=== PATIENT | female | born 1935 | race Caucasian/White ===

== ENCOUNTER 2016-10-21 17:01 | Observation (INO) | payer MEDICARE ==
--- NOTE | ~2016-10-21 | DS ---
Discharge Summary [facility] [address] [facility] [place]. [address] NAME: SABI HAIR : 33 STATUS : DIS Mary PAT#: [id number] AGE: 81 ADM/REG DATE : 10/21/16 MR#: [id number] REPORT SERV DATE: 10/24/16 DICTATED BY: ROSELIA MAURO DATE: 10/23/16 REPORT STATUS : Draft TRANSCRIBED BY: MODL DATE: 10/23/16 ADMISSION DATE: 10/21/2016 DISCHARGE DATE: 10/23/2016 HISTORY OF PRESENT ILLNESS: The patient is an 81-year-old female with a history of hypertension, paroxysmal atrial fibrillation, and CLL, who was admitted to the hospital for observation due to concern for hypoxia. For further details, please refer to H and P dictated by me on 10/22/2016. HOSPITAL COURSE: The patient was admitted as a direct admit from her primary care physician. At the time of presentation, there was no lab data available. Information gotten from primary care physician's office stated that her chest x-ray obtained in the office was clear. On presentation to the floor, the patient's O2 saturation measured 100%. The patient was complaining of generalized weakness. Labs were subsequently ordered, which resulted with a potassium of 2.7 and other electrolyte abnormalities. Electrolyte abnormalities were corrected per electrolyte repletion protocol. The patient was also noted to have LARRY with elevated creatinine. She was started on IV fluids for that and her home medications were also restarted to manage her chronic medical problems. During the hospital course, the patient was placed on IV fluids and all electrolytes were repleted. Status post correction of her potassium, the patient has felt significantly better stating that she is more energetic, able to walk around, does not have any complaint at this time. The patient feels very well and eager to go home. Given resolution of presenting symptoms and given correction of all her electrolytes, the patient will be discharged today. Plan has been discussed with the patient, who voices understanding and is agreeable with this plan. DISCHARGE EXAM: VITAL SIGNS: Blood pressure 118/58, pulse of 66, respirations 16, O2 saturation 98% on room air, temperature 97.9. GENERAL: The patient lying in bed, in no acute distress. Appears stated age. Speaking in full sentences. HEENT: Normocephalic, atraumatic. Extraocular motors intact. Moist oral mucosa. NECK: Trachea midline and symmetric. No thyromegaly noted. CHEST: Irregular rate and rhythm. CARDIOVASCULAR: Clear to auscultation bilaterally. ABDOMEN: Positive bowel sounds. Nontender. Nondistended. EXTREMITIES: No cyanosis, no clubbing, no edema. NEURO: Alert and oriented x3. No focal deficits appreciated. DISCHARGE MEDICATIONS: The patient's home medications were all continued without any additions, which include apixaban 5 mg p.o. daily, cholecalciferol 2000 international units p.o. daily, Lumigan 0.01 ophthalmic drop one drop each eye at bedtime, losartan and hydrochlorothiazide 100/12.5 mg tab, nadolol 20 mg p.o. daily, pantoprazole 40 mg p.o. daily, simvastatin 20 mg. ACTIVITY: As tolerated. DIET: Regular. Discharge Summary [address] [address] NAME: SABI HAIR : 33 STATUS : DIS Mary PAT#: [id number] AGE: 81 ADM/REG DATE : 10/21/16 MR#: [id number] REPORT SERV DATE: 10/24/16 DICTATED BY: ROSELIA MAURO DATE: 10/23/16 REPORT STATUS : Draft TRANSCRIBED BY: WESLEY DATE: 10/23/16 DISPOSITION: The patient will be discharged home to follow up with primary care physician in five to seven days. Greater than 30 minutes was spent coordinating care, planning discharge, and discussion with nurses and Case Management. CLAUDIA/WESLEY Roselia Mauro MD / [id number] CC: MD Azael Enriquez M.D.
--- NOTE | ~2016-10-21 | HP ---
History And Physical [address] [place]. [address] NAME: SABI HAIR : 33 STATUS : ADM IN [facility]#: [id number] AGE: 81 ADM/REG DATE : 10/21/16 MR#: [id number] REPORT SERV DATE: 10/22/16 DICTATED BY: ROSELIA MAURO DATE: 10/21/16 REPORT STATUS : Draft TRANSCRIBED BY: MODL DATE: 10/21/16 DATE OF ADMISSION: 10/21/2016 HISTORY OF PRESENT ILLNESS: The patient is an 81-year-old female with a history of CLL, hypertension, paroxysmal atrial fibrillation, and GERD, who presented to the hospital as a direct admit from her primary care physician's office. The patient states that she presented to her PCP for a routine checkup when her primary care physician noted that her oxygen saturation was low in the 80s on room air. Physicians subsequently obtained a chest x-ray, which was unremarkable. However, given her persistent hypoxia which was the deviation for her from her baseline, physician called [facility] for the patient to be admitted to the hospital for observation. Upon my evaluation, the patient was hemodynamically stable. She was breathing on room air and appeared to be saturating appropriately. O2 saturation obtained at bedside was 100%. REVIEW OF SYSTEMS: The patient reports generalized feeling of weakness and she reports a decreased p.o. intake and also report a 10-pound weight loss over a period of three to four months. All other systems were negative. PAST MEDICAL HISTORY: Allergic rhinitis, CLL, cryptogenic stroke, anomaly of tricuspid valve, hypertension hypercholesterolemia, vitamin D deficiency, gastroesophageal reflux disease, CVA. FAMILY HISTORY: Unremarkable. SURGICAL HISTORY: Unremarkable. SOCIAL HISTORY: The patient is a never smoker. Denies illicit, drug use, or alcohol use. ALLERGIES: THE PATIENT IS ALLERGIC TO AMLODIPINE AND AMERICAINE. PHYSICAL EXAMINATION: VITAL SIGNS: Blood pressure 102/82 with a heart rate of 72, O2 saturation 100%. The patient had normal respiratory effort. GENERAL: The patient appears stated age. Resting comfortably in bed. Speaking in full sentences. HEENT: Normocephalic, atraumatic. Extraocular motors intact. Moist oral mucosa. NECK: Trachea midline and symmetric. No JVD noted. No thyromegaly present. CHEST: Nontender to palpation. CARDIOVASCULAR: Irregularly irregular in rate and rhythm. LUNGS: Clear to auscultation bilaterally. No added breath sounds. ABDOMEN: Positive bowel sounds. Nontender. Nondistended. EXTREMITIES: No cyanosis, no clubbing, no edema. NEURO: Alert and oriented x3. LABS: No labs are available to us. History And Physical [address] [place] [place]. [address] NAME: SABI HAIR : 33 STATUS : ADM IN [facility]#: [id number] AGE: 81 ADM/REG DATE : 10/21/16 MR#: [id number] REPORT SERV DATE: 10/22/16 DICTATED BY: ROSELIA MAURO DATE: 10/21/16 REPORT STATUS : Draft TRANSCRIBED BY: WESLEY DATE: 10/21/16 IMAGING: No imaging available. However, imaging obtained from her primary care physician's office. PCP stated that the chest x-ray was unremarkable. ASSESSMENT AND PLAN: 1. Hypoxia. 2. Hypertension. 3. Paroxysmal atrial fibrillation. 4. Vitamin D deficiency. 5. Gastroesophageal reflux disease. 6. Chronic lymphocytic leukemia. 7. CVA. PLAN: 1. We will admit the patient to observation. We will obtain an ABG to further evaluate her hypoxia. We will start her on her home medications for her chronic medical problems. We will place the patient on the telemonitor and reassess in the morning. Plan has been discussed with the patient who voices understanding and is agreeable with this plan. All questions were addressed and answered. 2. DVT prophylaxis, with subcu heparin. 3. Code status is full. CLAUDIA/WESLEY Roselia Mauro MD / [id number] CC: MD Azael Enriquez M.D.
[~2016-10-21 17:01] MED LIST: ASA5GR PO; CEFT5 PO; COR20 PO; HYZAAR1 TAB PO; LUMIGAN2.5 ML OPH; NORV5 PO; PROTONIX PO; VITAMIN D1000 UNI1 PO; XALAT OPH; ZOCOR20 PO
[2016-10-21 19:52] LABS: BE (BASE EXCESS) -0.8 MEQ/L (0 +/- 2.5); CARBOXYHEMOGLOBIN 0.3 % (0-3); HCO3 (ACTUAL BICARBONATE) 22.4 MEQ/L (23-27); INSTRUMENT SERIAL # 35151; METHEMOGLOBIN 0.6 % (0-3); O2 CONTENT 17.5 VOL% (18-24); OPERATOR ID 16469; PCO2 (CO2 TENSION) 33 MMHG (35-45); PO2 (O2 TENSION) 85 MMHG (79-93); SAMPLE Arterial; pH 7.45 (7.37-7.43)
[2016-10-21 20:41] LABS: HEMATOCRIT 37.2 % (36.0-48.0); HEMOGLOBIN 12.4 g/dL (12.0-16.0); MEAN CORPUSCULAR HEMOGLOB 30.3 pg (26.0-34.0); MEAN PLATELET VOLUME 13.1 fL (9.2-13.0); PLATELET COUNT 139 10/3/uL (150-400); RBC DISTRIBUTION WIDTH 15.2 % (12.0-16.0); RED CELL COUNT 4.09 10/6/uL (4.0-5.6)
[2016-10-21 20:47] LABS: MANUAL DIFF YES %; MEAN CORPUS HGB CONC 33.3 g/dL (32.0-36.0); WHITE BLOOD CELLS 27.2 10/3/uL (4.5-10.5)
[2016-10-21 20:54] LABS: ALBUMIN 3.6 G/DL (3.5-5.0); ALKALINE PHOSPHATASE 122 U/L (45-117); BUN (BLOOD UREA NITROGEN) 24 MG/DL (6-23); CO2 (CARBON DIOXIDE) 28 MMOL/L (24-34); CREATININE 1.75 MG/DL (0.55-1.02); GFR AFRICAN AMERICAN 31 ML/MIN (>=60); GFR NON AFRICAN AMERICAN 26 ML/MIN (>=60); SGOT(AST) 25 U/L (5-40); SGPT(ALT) 15 U/L (5-65); TOTAL PROTEIN 6.9 G/DL (6.0-8.5)
[2016-10-21 20:55] LABS: A/G RATIO 1.1 (0.7-1.9); CALCIUM, SERUM 8.4 MG/DL (8.5-10.4); CHLORIDE, SERUM 92 MMOL/L (96-112); GLOBULIN 3.3 G/DL (2.5-4.1); GLUCOSE, SERUM 140 MG/DL (60-99); POTASSIUM, SERUM 2.9 MMOL/L (3.5-5.3); SODIUM, SERUM 133 MMOL/L (135-148); TOTAL BILIRUBIN 1.6 MG/DL (0-1.2)
[2016-10-21 20:57] LABS: RETICULOCYTE COUNT 1.6 % (0.5-2.9); RETICULOCYTE COUNT ABSOLUTE 65.2 10/3/uL (20.2-119.8)
[2016-10-21 21:09] LABS: LYMPHOCYTES 76 %; LYMPHOCYTES ABSOLUTE (CALC) 20.67 10/3/uL (0.67-4.30); MONOCYTES 2 %; MONOCYTES ABSOLUTE (CALC) 0.54 10/3/uL (0.21-1.20); NEUTROPHILS ABSOLUTE (CALC) 5.98 10/3/uL (2.02-8.40); PLATELET ESTIMATE SLT DEC (ADEQUATE); RBC MORPHOLOGY NORM (NORMAL); SEGMENTED NEUTROPHIL (0) 22 %; TOTAL NUCLEATED CELLS 100
[2016-10-21] MEDS ORDERED: COZ50 PO (21:26)
[2016-10-21] MEDS ORDERED: LOP25 PO (21:26)
[2016-10-21] MEDS ORDERED: PROTONIX PO (21:26)
[2016-10-21] MEDS ORDERED: VITAMIN D2000 UNIT PO (21:27)
[2016-10-21] MEDS ORDERED: LUMIGAN2.5 ML OPH (21:27)
[2016-10-21] MEDS ORDERED: ZOCOR20 PO (21:27)
[2016-10-21] MEDS ORDERED: ELIQUIS 5 MG TAB5 MG PO (21:27)
[2016-10-21 23:17] LABS: ASCORBIC ACID (UR NOT ORDER) NEG (NEG); BILIRUBIN, URINE NEGATIVE (NEG); KETONE, URINE NEGATIVE (NEG); LEUKOCYTE ESTERASE(NOT OR LARGE (NEG); WBC (NOT ORDERED) (RFLEX) 139 (0-5)
[2016-10-22 06:41] LABS: A/G RATIO 1.1 (0.7-1.9); ALBUMIN 3.2 G/DL (3.5-5.0); ALKALINE PHOSPHATASE 104 U/L (45-117); BUN (BLOOD UREA NITROGEN) 24 MG/DL (6-23); CALCIUM, SERUM 8.2 MG/DL (8.5-10.4); CHLORIDE, SERUM 95 MMOL/L (96-112); CO2 (CARBON DIOXIDE) 27 MMOL/L (24-34); CREATININE 1.47 MG/DL (0.55-1.02); GFR AFRICAN AMERICAN 38 ML/MIN (>=60); GFR NON AFRICAN AMERICAN 33 ML/MIN (>=60); GLUCOSE, SERUM 98 MG/DL (60-99); PHOSPHORUS, SERUM 2.7 MG/DL (2.5-4.5); POTASSIUM, SERUM 3.7 MMOL/L (3.5-5.3); SGOT(AST) 21 U/L (5-40); SGPT(ALT) 13 U/L (5-65); SODIUM, SERUM 134 MMOL/L (135-148); TOTAL BILIRUBIN 1.2 MG/DL (0-1.2); TOTAL PROTEIN 6.2 G/DL (6.0-8.5)
[2016-10-22 07:09] LABS: HEMOGLOBIN 11.5 g/dL (12.0-16.0); MANUAL DIFF YES %; MEAN CORPUS HGB CONC 33.8 g/dL (32.0-36.0); MEAN CORPUSCULAR HEMOGLOB 30.3 pg (26.0-34.0); MEAN CORPUSCULAR VOLUME 89.7 fL (80-100); MEAN PLATELET VOLUME 13.4 fL (9.2-13.0); PLATELET COUNT 130 10/3/uL (150-400); RBC DISTRIBUTION WIDTH 15.1 % (12.0-16.0); RED CELL COUNT 3.79 10/6/uL (4.0-5.6); WHITE BLOOD CELLS 22.4 10/3/uL (4.5-10.5)
[2016-10-22 07:24] LABS: PROCALCITONIN 0.17 ng/mL (<0.5)
[2016-10-22 07:29] LABS: LYMPHOCYTES 89 %; LYMPHOCYTES ABSOLUTE (CALC) 19.94 10/3/uL (0.67-4.30); MONOCYTES 1 %; MONOCYTES ABSOLUTE (CALC) 0.22 10/3/uL (0.21-1.20); NEUTROPHILS ABSOLUTE (CALC) 2.24 10/3/uL (2.02-8.40); PLATELET ESTIMATE SLT DEC (ADEQUATE); SEGMENTED NEUTROPHIL (0) 10 %; TOTAL NUCLEATED CELLS 100
[2016-10-22 07:30] LABS: RBC MORPHOLOGY NORM (NORMAL); SMUDGE CELLS FEW
[2016-10-23 06:23] LABS: A/G RATIO 1.2 (0.7-1.9); ALBUMIN 3.2 G/DL (3.5-5.0); ALKALINE PHOSPHATASE 99 U/L (45-117); BUN (BLOOD UREA NITROGEN) 23 MG/DL (6-23); CALCIUM, SERUM 8.8 MG/DL (8.5-10.4); CHLORIDE, SERUM 101 MMOL/L (96-112); CO2 (CARBON DIOXIDE) 27 MMOL/L (24-34); CREATININE 1.16 MG/DL (0.55-1.02); GFR AFRICAN AMERICAN 50 ML/MIN (>=60); GFR NON AFRICAN AMERICAN 44 ML/MIN (>=60); GLOBULIN 2.7 G/DL (2.5-4.1); GLUCOSE, SERUM 84 MG/DL (60-99); POTASSIUM, SERUM 4.4 MMOL/L (3.5-5.3); SGOT(AST) 23 U/L (5-40); SGPT(ALT) 12 U/L (5-65); SODIUM, SERUM 136 MMOL/L (135-148); TOTAL PROTEIN 5.9 G/DL (6.0-8.5)
[2016-10-23 06:26] LABS: HEMATOCRIT 34.5 % (36.0-48.0); HEMOGLOBIN 11.3 g/dL (12.0-16.0); MEAN CORPUS HGB CONC 32.8 g/dL (32.0-36.0); MEAN CORPUSCULAR HEMOGLOB 30.3 pg (26.0-34.0); MEAN PLATELET VOLUME 13.1 fL (9.2-13.0); PLATELET COUNT 130 10/3/uL (150-400); RBC DISTRIBUTION WIDTH 15.3 % (12.0-16.0); RED CELL COUNT 3.73 10/6/uL (4.0-5.6); WHITE BLOOD CELLS 21.2 10/3/uL (4.5-10.5)
[2016-10-23 06:27] LABS: TOTAL BILIRUBIN 0.5 MG/DL (0-1.2)
[2016-10-23 06:32] LABS: MANUAL DIFF YES %; MEAN CORPUSCULAR VOLUME 92.5 fL (80-100)
[2016-10-23 06:46] LABS: BAND NEUTROPHILS 2 %; EOSINOPHILS 1 %; EOSINOPHILS ABSOLUTE (CALC) 0.21 10/3/uL (0.0-0.53); LYMPHOCYTES 91 %; LYMPHOCYTES ABSOLUTE (CALC) 19.29 10/3/uL (0.67-4.30); NUCLEATED RED BLOOD CELLS 1 /100WBC (0); SEGMENTED NEUTROPHIL (0) 6 %; SMUDGE CELLS MANY; TOTAL NUCLEATED CELLS 100
[2016-10-23 06:47] LABS: BURR CELLS 1+ (3-10/OIF) (0-2/OIF); PLATELET ESTIMATE DEC (ADEQUATE)
[2017-03-26] MEDS ORDERED: ASAB PO (13:07)
== END 2016-10-23 14:05 | disposition home or self-care (01) ==
LOC: 7NO 17:01
PROVIDERS: Hospitalist
DX: R09.02 Hypoxemia (principal); I10 Essential (primary) hypertension; I48.0 Paroxysmal atrial fibrillation; K21.9 Gastro-esophageal reflux disease without esophagitis; C91.10 Chronic lymphocytic leukemia of B-cell type not having achieved remission; E78.00 Pure hypercholesterolemia, unspecified; E55.9 Vitamin D deficiency, unspecified; Z86.73 Personal history of transient ischemic attack (TIA), and cerebral infarction without residual deficits; Z88.8 Allergy status to other drugs, medicaments and biological substances; Z79.899 Other long term (current) drug therapy; Z90.49 Acquired absence of other specified parts of digestive tract; Z98.890 Other specified postprocedural states
CPT/HCPCS: 71010; 80053; 81001; 82805; 83605; 83735; 84100; 84132; 84145; 85025; 85045; 87040; 87086; 96374; 96375; 96376; A9270-GY; G0378; J0690